=== PATIENT | female | born 1990 | race Caucasian/White ===

== ENCOUNTER → 2017-03-05 | Outpatient (CLI) | payer BC ==
[~2017-03-05] MED LIST: HYDR-5688 PO
--- NOTE | 2017-03-05 10:47 | DIAGNOSTIC IMAGING REPORT ---
ABDOMEN FOR HERNIA HISTORY: 26 years-old Female R19.09 Umbilical mass COMPARISON: None available TECHNIQUE: Multiple real-time sonographic images of the periumbilical soft tissues were obtained assessing grayscale appearance. FINDINGS: Within the supraumbilical soft tissues there is a small hypoechoic abdominal wall defect, 0.7 x 0.6 cm containing a 3.8 x 2.9 x 0.8 cm ill-defined structure which is isoechoic to adjacent subcutaneous fat suggesting a fat filled supraumbilical hernia. No associated loops of bowel are seen communicating with this defect. This does not appear to be reducible. IMPRESSION: Small fat filled supraumbilical hernia without reduction or associated loops of bowel identified. The above report was generated using voice recognition software. It may contain grammatical, syntax or spelling errors. Electronically signed by: Bob Manley M.D. 03/05/2017 10:46 AM Dictated Date/Time: 03/05/2017 10:43 AM
== END | disposition home or self-care (01) ==
LOC: C.ULTR 10:01
PROVIDERS: ATTEND Physician Assistant Medical
DX: R19.09 Other intra-abdominal and pelvic swelling, mass and lump (principal); K43.9 Ventral hernia without obstruction or gangrene

== ENCOUNTER → 2017-04-06 | Day surgery (SDC) | payer BC ==
[2017-04-05 13:06] VITALS: Ht 167.6 cm; Wt 94.1 kg
[~2017-04-06] VITALS: Ht 167.6 cm; Wt 94.1 kg
[~2017-04-06] MED LIST changes: +ATROPINE SULFATE 0.1 MG/ML 5ML SYR IV PRN; +BUPIVACAINE/EPINEPHRINE 0.5% MPF 1:200,000 10 ML VIAL ONE; +CEFAZOLIN 2000 MG/60 ML D5W IV SCH; +DEXAMETHASONE SOD INJ 4 MG/ML VIAL ONE; +EpHEDrine SULFATE INJ 50 MG/ML AMP IV PRN; +FENTANYL CITRATE INJ 50 MCG/1 ML 2 ML VIAL ONE; +HYDROCODONE/ACETAMOPHEN 5/325MG TAB PO PRN; +IBUPROFEN 600 MG TAB PO PRN; +LACTATED RINGER'S 1000ML 1,000 ML IV SCH; +LIDOCAINE HCL 2% 2 ML VIAL (20MG/ML) ONE; +MIDAZOLAM HCL 1 MG/ML 2ML VIAL ONE; +ONDANSETRON INJ 2 MG/ML 2 ML VIAL IV PRN; +ONDANSETRON INJ 2 MG/ML 2 ML VIAL ONE; +PROPOFOL IV EMULSION 10 MG/ML 20 ML VIAL IV ONE; +SODIUM CHLORIDE 0.9% 1000ML 1,000 ML IV SCH
--- NOTE | 2017-04-06 06:56 | History & Physical Bridge Note ---
H&P Re-Evaluation Bridge Note: I have examined the patient, reviewed the History & Physical and in the interval since the performance of the History & Physical I have noted the following changes of clinical significance: No changes noted
--- NOTE | 2017-04-06 07:37 | [facility] Operative Report ---
Operative Report Operative Date Apr 06, 2017. Pre-Operative Diagnosis Epigastric Hernia Post-Operative Diagnosis Same Procedure(s) Performed Open Epigastric Hernia Repair Surgeon Dr. Jeffrey Automatic Steel Tie Adjuster Surgeon(s) None Estimated Blood Loss 5 ml Findings small 1 cm epigastric hernia with fat incarceration Specimens None Anesthesia LMA Complication(s) None Disposition Recovery Room / PACU Description of Procedure After informed consent was obtained the patient was taken the operating suite placed in supine position. After successful placement of the LMA the abdomen was sterilely prepped and draped in usual fashion. A supraumbilical incision was made directly above the umbilicus. We carried us down through the soft tissue using electrocautery. I encountered what I thought was a lipoma. However when I carried this down to its neck there is a small 1 cm epigastric hernia. I amputated the piece of fat because it was too large to to placed back through the hernia. Once I amputated it, it left a discrete fascial defect. I used 0 Ethibond in interrupted terdcs-yp-dahns fashion to close the small defect. I did palpate around the rest of the area and felt no other abnormalities. I thoroughly irrigated the wound and closed it in several layers using 3-0 Vicryl for deep layers and 4-0 Monocryl for the skin. Marcaine was injected around the incision for postoperative analgesia and skin glue used as a dressing. Patient was awakened elevate was removed and she was transferred recovery in stable condition I attest to the content of the Intraoperative Record and any orders documented therein. Any exceptions are noted below.
--- NOTE | 2017-04-06 07:39 | Discharge Instructions-SurgCtr ---
Discharge Instructions Date of Service Apr 06, 2017. Visit Reason for Visit: Epigastric Hernia Discharge Discharge Diagnosis / Problem: epigastric hernia Discharge Goals Goal(s): Decrease discomfort, Improve function Activity Recommendations Activity Limitations: as noted below Lifting Limitations: no more than 10 pounds Exercise/Sports Limitations: until after follow-up appointment May Resume Sexual Activity: after follow-up appointment Shower/Bathe: tomorrow Anesthesia . Post Anesthesia Instructions: If you have had General Anesthesia or IV Sedation: * Do not drive today. * Resume driving when surgeon permits. * Do not make important decisions or sign legal documents today. * Call surgeon for: 1. Temperature elevations greater than 101 degrees F. 2. Uncontrollable pain. 3. Excessive bleeding. 4. Persistent nausea and vomiting. 5. Medication intolerance (nausea, vomiting or rash). * For nausea and vomiting use only clear liquids such as: tea, soda, bouillon until nausea subsides, then gradually increase diet as tolerated. * If you have any concerns or questions, call your surgeon's office. If physician is unavailable and it is an emergency, call 911 or go to the nearest emergency room. . Instructions / Follow-Up Instructions / Follow-Up call [phone] to schedule a f/u appointment if you do not have one. Also please call if any questions or concerns. Diet Recommendations Home Diet: resume previous diet Procedures Procedures Performed: Open Epigastric Hernia Repair Pending Studies Studies pending at discharge: no Medical Emergencies . Who to Call and When: Medical Emergencies: If at any time you feel your situation is an emergency, please call 911 immediately. . Non-Emergent Contact Non-Emergency issues call your: Primary Care Provider, Surgeon Call Non-Emergent contact if: temperature is above 101, wound has increased drainage, wound has increased redness, wound has increased pain . . "Provider Documentation" section prepared by Gilberto Jeffrey. .
[2017-04-06] MEDS: FENTANYL CITRATE INJ 50 MCG/1 ML 2 ML VIAL IV PRN ×3 (07:56→08:11)
[2017-04-06 08:49] VITALS: TEMP 36.8
--- NOTE | 2017-04-06 08:57 | Anesthesia Progress Nt - [facility] ---
Anesthesia Post Op Note Date & Time Apr 06, 2017 at 08:56 Vital Signs Pain Intensity: 2 Vital Signs Past 12 Hours Date Time Temp Pulse Resp B/P (MAP) Pulse Ox O2 Delivery O2 Flow Rate FiO2 04/06/17 08:49 36.8 69 16 122/87 (99) 95 Room Air 04/06/17 08:28 77 14 97 04/06/17 08:28 74 14 04/06/17 08:26 131/96 04/06/17 08:25 36.5 69 16 131/96 96 Room Air 04/06/17 08:23 85 17 96 04/06/17 08:23 80 17 04/06/17 08:21 138/86 04/06/17 08:18 67 10 99 04/06/17 08:18 68 10 04/06/17 08:16 123/93 04/06/17 08:13 73 15 95 04/06/17 08:13 71 15 04/06/17 08:11 120/86 04/06/17 08:08 66 13 99 04/06/17 08:08 65 13 04/06/17 08:05 119/83 04/06/17 08:03 65 11 04/06/17 08:03 64 11 99 04/06/17 08:00 108/81 04/06/17 07:58 69 16 100 04/06/17 07:58 70 16 04/06/17 07:56 120/73 04/06/17 07:53 78 13 99 04/06/17 07:53 73 13 04/06/17 07:51 139/64 04/06/17 07:48 80 10 04/06/17 07:48 81 10 99 04/06/17 07:43 90 15 04/06/17 07:43 90 15 98 04/06/17 07:40 122/84 04/06/17 07:39 227/215 04/06/17 07:38 36.2 98 20 122/84 98 Mask 6 04/06/17 07:38 100 6 04/06/17 07:38 102 6 96 04/06/17 06:26 37 104 16 146/93 (110) 100 Room Air Notes Mental Status: alert / awake / arousable, participated in evaluation Pt Amnestic to Procedure: Yes Nausea / Vomiting: adequately controlled Pain: adequately controlled Airway Patency, RR, SpO2: stable & adequate BP & HR: stable & adequate Hydration State: stable & adequate Anesthetic Complications: no major complications apparent
[2017-04-06 09:06] VITALS: BP 116/80; PULSE 67; O2SAT 96
== END | disposition home or self-care (01) ==
LOC: X.SURG 06:11
PROVIDERS: ATTEND Surgery
DX: K43.9 Ventral hernia without obstruction or gangrene (principal); Z82.49 Family history of ischemic heart disease and other diseases of the circulatory system; Z80.41 Family history of malignant neoplasm of ovary

== ENCOUNTER 2020-12-20 05:33 | Inpatient (IN) ==
--- NOTE | 2020-12-03 14:28 | Anesthesiology Consultation ---
Date of Service December 03, 2020 Assessment & Plan (1) Encounter for pre-operative examination: COVID screening: Per assessment on 12/03: Travel screen negative, no known COVID- 19 positive contacts or current COVID-19 related symptoms. Surgeon arranging preop COVID testing (scheduled 12/16; [place]). Awaiting results. 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 Surgery Operation Date: 12/20/20 07:30 Proposed Procedures p Section in LD - Chanel Dowell MD, FACOG Height/Weight Height: 5 ft 6 in Weight: 106.594 kg Allergies Allergy/AdvReac Type Severity Reaction Status Date / Time Sulfa (Sulfonamide Allergy Unknown RASH AND Verified 12/03/20 13:42 Antibiotics) BLOTCHES Medications Home Medications Medication Instructions Recorded Confirmed Last Taken prenat.vits,yani,lbr-kowj-uvnne 1 tab PO QAM 05/16/20 12/03/20 Unknown magnesium 250 mg tablet 250 mg PO QAM 08/07/20 12/03/20 Unknown acetone (urine) test #50 10/18/20 12/03/20 Unknown blood sugar diagnostic #150 10/18/20 12/03/20 Unknown blood-glucose meter #1 ea 10/18/20 12/03/20 Unknown lancets 33 gauge #150 ea 10/18/20 12/03/20 Unknown insulin syringe-needle U-100 0.5 #50 ea 11/25/20 12/03/20 Unknown mL 31 gauge x 5/16" insulin NPH isoph U-100 human 20 unit SUBCUT HS 12/03/20 12/03/20 Unknown [Novolin N NPH U-100 Insulin] Past Medical History Medical History Anxiety no meds at present Epigastric hernia Gestational diabetes Past Family History Family History Grandmother (Paternal) Ovarian cancer Mother Hypertension Diabetes Uncle Sleep apnea Denies family history of Prostate cancer Myocardial infarction Breast cancer Colorectal cancer Past Surgical History Surgical History History of ankle surgery screws put in ankle 2000 > left S/P section x1 S/P hernia repair open epigastric hernia repair S/P wisdom tooth extraction Social History Smoking Status: Never smoker Do You Dip or Chew Tobacco: No Hx Alcohol Use: No Hx Substance Use: No substance use type: does not use
--- NOTE | 2020-12-19 12:22 | History & Physical Report ---
Date of Service December 19, 2020 Assessment & Plan (1) Insulin controlled gestational diabetes mellitus (GDM) during : (2) Previous delivery affecting : Patient desires repeat c/s and tubal ligation at time. She understands her other options for control and declines. Counseled on failure, ectopic, regret. The risks of surgery were discussed with the patient including anesthesia, bleeding requiring transfusion, infection and poor wound healing, blood clot, damage to surrounding structures requiring further surgery or intervention and injury to the baby. Consent reviewed and signed. Questions answered. History of Present Illness Chief Complaint: presents for scheduled repeat Primary Care Provider: Ashley Ricketts MD Patient is a 30yowf at 39 weeks who presents for scheduled repeat c/s. Her has been complicated by insulin requiring GDM. testing has been reassuring. Growth us at 34 weeks aga. Patient had first c/s in 03/27 for ftp with cervical lip, 7#6oz in [place]. Had a low lying placenta at 20 week scan, that was resolved at 24 weeks. labs--O+/ab-/ri/rprnr/hepb-/hiv-/gbs neg/ panorama low risk, 28 week gtt 158/failed 2 hr gtt/ declined cf/sma Allergies Allergy/AdvReac Type Severity Reaction Status Date / Time Sulfa (Sulfonamide Allergy Unknown RASH AND Verified 12/19/20 11:43 Antibiotics) BLOTCHES Home Medications Medication Instructions Recorded Confirmed Type prenat.vits,yani,nzj-aasb-zhmdm 1 tab PO QAM 05/16/20 12/19/20 History magnesium 250 mg tablet 250 mg PO QAM 08/07/20 12/19/20 History acetone (urine) test #50 ea 10/18/20 12/19/20 Rx blood sugar diagnostic #150 ea 10/18/20 12/19/20 Rx blood-glucose meter #1 ea 10/18/20 12/19/20 Rx lancets 33 gauge #150 ea 10/18/20 12/19/20 Rx insulin syringe-needle U-100 0.5 #50 ea 11/25/20 12/19/20 Rx mL 31 gauge x 5/16" insulin NPH isoph U-100 human 20 unit SUBCUT HS 12/03/20 12/19/20 History [Novolin N NPH U-100 Insulin] Patient History Medical History Anxiety no meds at present Epigastric hernia Gestational diabetes Surgical History History of ankle surgery screws put in ankle 2000 > left S/P section x1 S/P hernia repair open epigastric hernia repair S/P wisdom tooth extraction Family History Grandmother (Paternal) Ovarian cancer Mother Hypertension Diabetes Uncle Sleep apnea Denies family history of Prostate cancer Myocardial infarction Breast cancer Colorectal cancer Social History Smoking Status: Never smoker Second Hand Exposure: No; Hx Alcohol Use: No Hx Substance Use: No Preferred Language: Yemeni Communication Ability: Effective Visual Impairment: No Limitations Hearing Ability: Normal Criminal Court Judge Required: No Beliefs That Will Affect Care: None marital status: Single marital status details: Prem (34) [phone] Current Living Situation: Family and Significant Other Current Living Situation Comment: lives with FOB, 1 dog, 3 cats, fob to change litter. 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 Feels Safe at Home: Yes Dental Care, Regularly: Yes Physical Activity Frequency: 1-2 Times per Week Assistive Devices: Contacts OB History g1 see above DIPPER AND DRIER History non contributory Physical Exam Constitutional: WD/WN, vitals as above Neck: trachea midline, no thyromegaly Respiratory: normal respiratory effort, lungs clear to auscultation Cardiovascular: RRR, no murmur, no edema Gastrointestinal (Abdomen): soft, gravid, nt Psychiatric: A+Ox3, euthymic affect Coding Level of Care Code None Diagnoses Insulin controlled gestational diabetes mellitus (GDM) during O24.414 Previous delivery affecting O34.219
[2020-12-20] MEDS ORDERED: LACTATED RINGER'S 1,000 ML IV SCH ×2 (05:45→06:42)
[2020-12-20] MEDS ORDERED: CITRIC ACID/SODIUM CITRATE 15 ML UDC PO SCH (06:00)
[2020-12-20] MEDS ORDERED: CEFAZOLIN 3000 MG IV SCH (06:00)
[2020-12-20 06:15] LABS: Appearance Urine Cloudy (Clear); Bacteria Urine Automated 1+ (Negative); Bilirubin Urine Negative (Negative); Blood Urine Negative (Negative); Color Urine Yellow; Epithelial Cell Urine Auto >30 /lpf (0-5); Glucose Urine UA Negative (Negative); Ketones Urine Negative (Negative); Leukocyte Esterase Urine 2+ (Negative); Nitrite Urine Negative (Negative); Protein Urine Negative (Negative); RBC Urine Automated 0-4 /hpf (0-4); Specific Gravity Urine 1.013 (1.000-1.030); Urobilinogen Urine Negative (Negative); WBC Urine Automated >30 /hpf (0-5); pH Urine 6.5 (4.5-7.5)
[2020-12-20] MEDS ORDERED: MoRPHine SULFATE PF 1 MG/ML 10 ML AMP/VIAL ONE (06:42)
[2020-12-20] MEDS ORDERED: fentaNYL citrate 100 MCG/2 ML VIAL ONE (06:42)
[2020-12-20] MEDS ORDERED: OXYTOCIN 10 UNITS/ML VIAL ONE (06:42)
[2020-12-20 06:44] LABS: Basophils # (auto) 0.02 K/uL (0-0.2); Basophils % (auto) 0.2 %; Eosinophils # (auto) 0.09 K/uL (0-0.5); Hematocrit (blood only) 36.1 % (37-47); Hemoglobin 11.9 g/dL (12.0-16.0); Immature Granulocytes # (auto) 0.07 K/uL (0.00-0.02); Immature Granulocytes % (auto) 0.8 %; Lymphocytes # (auto) 2.44 K/uL (1.2-3.4); Lymphocytes % (auto) 27.4 %; Mean Corpuscular Hemoglobin 28.8 pg (25-34); Mean Corpuscular Volume 87.4 fL (80-100); Monocytes # (auto) 0.93 K/uL (0.11-0.59); Monocytes % (auto) 10.4 %; Neutrophils # (auto) 5.37 K/uL (1.4-6.5); Neutrophils % (auto) 60.2 %; Platelet Count 199 K/uL (130-400); RDW Coefficient of Variation 13.5 % (11.5-14.5); RDW Standard Deviation 43.2 fL (36.4-46.3); Red Blood Count 4.13 M/uL (4.2-5.4); White Blood Count 8.92 K/uL (4.8-10.8)
[2020-12-20] MEDS ORDERED: NALOXONE HCL 0.08 MG in SYRINGE 1.8 ML IV PRN (07:10)
[2020-12-20] MEDS ORDERED: diphenhydrAMINE 50 MG/ML VIAL IV PRN (07:10)
[2020-12-20] MEDS ORDERED: ONDANSETRON INJ 2 MG/ML 2 ML VIAL IV PRN (07:10)
[2020-12-20] MEDS ORDERED: NALOXONE HCL 0.4 MG/1 ML VIAL/CARP IV PRN (07:10)
[2020-12-20] MEDS ORDERED: MoRPHine SULFATE PF 1 MG/ML 10 ML AMP/VIAL INT SPINAL ONE (07:10)
[2020-12-20] MEDS ORDERED: KETOROLAC 30 MG/ML VIAL IV PRN (07:10)
[2020-12-20] MEDS ORDERED: ePHEDrine sulfate 50 MG/ML AMP IV PRN (07:10)
[2020-12-20] MEDS ORDERED: NALOXONE HCL 1 MG in SODIUM CHLORIDE 0.9% 1000ML 1,000 ML IV PRN (07:10)
[2020-12-20] MEDS ORDERED: LACTATED RINGER'S 500 ML IV PRN (07:10)
[2020-12-20] MEDS ORDERED: MoRPHine SULFATE 2 MG/ML CARP IV PRN (07:10)
--- NOTE | 2020-12-20 07:10 | History & Physical Bridge Note ---
Date of Service December 20, 2020 History & Physical Bridge Note I have examined the patient, reviewed the History & Physical and in the interval since the performance of the History & Physical I have noted the following changes of clinical significance: no changes noted
[2020-12-20] MEDS ORDERED: SODIUM CHLORIDE 0.9% 1000ML 1,000 ML IV SCH (07:15)
[2020-12-20] MEDS ORDERED: DC INTRASPINAL MORPHINE SCH (07:15)
[2020-12-20] MEDS ORDERED: NO NARCOTICS OR SEDATIVES SCH (07:15)
[2020-12-20] MEDS ORDERED: PHENYLEPHRINE 100MCG/ML 5ML SYR ONE (08:01)
[2020-12-20] MEDS ORDERED: ePHEDrine sulfate 50 MG/ML SYR ONE (08:01)
[2020-12-20 08:45] LABS: CO2 Cord Arterial Blood 58 mmHg (39.1-73.5); HCO3 Cord Arterial Blood 26 mmol/L (19.7-28.5); PO2 Cord Arterial Blood 18 mmHg (4.1-31.7); pH Cord Arterial Blood 7.27 (7.1-7.38)
[2020-12-20 08:49] LABS: Oxygen Sat Cord Arterial Blood < 60.0 % (<60)
[2020-12-20 08:51] LABS: Base Excess Cord Venous Blood -1.3 mEq/L (-7.7-1.9); Cord Venous Blood HCO3 24 mmol/L (18.4-26.8); Cord Venous Blood PCO2 40 mmHg (30.4-57.2); Cord Venous Blood PO2 27 mmHg (14.1-43.3); Cord Venous Blood pH 7.38 (7.20-7.44)
[2020-12-20] MEDS ORDERED: ONDANSETRON INJ 2 MG/ML 2 ML VIAL ONE (09:08)
--- NOTE | 2020-12-20 10:00 | Anesthesiology Progress Note ---
Date of Service December 20, 2020 Anesthesia Post Procedure Vital Signs Vital Signs: Temp Pulse Resp BP Pulse Ox 12/20/20 09:58 70 95 12/20/20 09:53 69 97 12/20/20 09:51 71 121/62 12/20/20 09:50 72 18 121/62 97 12/20/20 09:48 70 97 12/20/20 09:43 79 129/81 97 12/20/20 09:40 81 20 129/81 97 12/20/20 09:38 66 97 12/20/20 09:35 62 144/64 H 12/20/20 09:33 66 97 12/20/20 09:30 66 18 144/64 H 97 12/20/20 09:28 63 98 12/20/20 09:25 73 87 L 12/20/20 09:23 65 98 12/20/20 09:21 63 131/73 12/20/20 09:20 36.3 C L 59 L 18 121/65 99 12/20/20 09:18 61 121/65 99 12/20/20 07:16 67 136/90 12/20/20 07:12 36.5 C 67 18 136/90 12/20/20 06:07 81 140/98 12/20/20 05:59 36.8 C 81 18 140/98 12/20/20 05:46 36.8 C 76 18 141/98 H Transfer of Care Handoff Completed per policy Notes Mental Status: alert / awake / arousable and participated in evaluation Patient Amnestic to Procedure: Yes Nausea / Vomiting: adequately controlled Pain: adequately controlled Airway Patency, RR, SpO2: stable & adequate BP & HR: stable & adequate Hydration State: stable & adequate Anesthetic Complications: no major complications apparent and Pt Satisfied with anesthetic care
[2020-12-20] MEDS ORDERED: SENNA 8.6 MG TAB PO PRN (10:59)
[2020-12-20] MEDS ORDERED: BENZOCAINE 20% AER SPR 82.5 GM CAN EXT PRN (10:59)
[2020-12-20] MEDS ORDERED: MAGNESIUM HYDROXIDE SUSP 30 ML UDC PO PRN (10:59)
[2020-12-20] MEDS ORDERED: HYDROCORTISONE ACETATE 25 MG SUPP PR PRN (10:59)
[2020-12-20] MEDS ORDERED: DIPHTHERIA/TETANUS/PERTUSSIS 0.5 ML SYR/VIAL IM ONE (10:59)
[2020-12-20] MEDS ORDERED: SUPERCREAM 0.870% 15 GM JAR EXT PRN (10:59)
[2020-12-20] MEDS ORDERED: ACETAMINOPHEN 1,000 MG/100 ML VIAL IV ONE (11:04)
[2020-12-20] MEDS: OXYTOCIN 20 UNITS in LACTATED RINGER'S 1,000 ML IV SCH ×2 (11:19→19:44)
--- NOTE | 2020-12-20 11:47 | Operative Report (OR) ---
DATE OF OPERATION: 12/20/2020 PREOPERATIVE DIAGNOSES: 1. Intrauterine at 39 and 2/7 weeks. 2. History of previous section, desires repeat. 3. Desires permanent surgical sterilization. POSTOPERATIVE DIAGNOSES: 1. Intrauterine at 39 and 2/7 weeks. 2. History of previous section, desires repeat. 3. Desires permanent surgical sterilization. 4. Intraabdominal adhesions of the uterus to the anterior abdominal wall. PROCEDURES: 1. Repeat lower transverse section. 2. Bilateral modified Moni tubal ligation. 3. Lysis of adhesions. SURGEON: Chanel Dowell MD. LABOR STANDARDS DIRECTOR: Keith Nunes M.D., PGY-1 and Annamaria Wolf MS2. ANESTHESIA: Spinal. ESTIMATED BLOOD LOSS: 800 mL. URINE OUTPUT: 200 mL of clear yellow urine drained from the bladder at the end of the procedure. FLUIDS: 2000 mL. INDICATIONS: The patient is a 30-year-old white female 2, para 1-0-0-1 with history of a previous section in her previous , desires repeat. Also, desires permanent surgical sterilization. FINDINGS: Viable female delivered, Apgars pending, weight pending. Normal uterus, tubes, and ovaries were noted bilaterally. There were some small fibroids noted subserosally on the uterus. There were significant adhesions of the left uterus to the sidewall and anterior abdominal wall as well as lower uterine segment adhesions to the anterior abdominal wall. COMPLICATIONS: None. DRAINS: Patterson. DISPOSITION: To recovery room in stable condition. DESCRIPTION OF PROCEDURE: The patient was taken to the operating room where she was identified verbally and by bracelet. She She was seated on the operating table where a spinal anesthetic was induced without difficulty. She was then placed in the dorsal supine position with a leftward tilt. A Patterson catheter was placed sterilely. She was prepped and draped in normal sterile fashion. Her anesthetic was checked and found to be adequate. Time-out was held, identifying correct patient, procedure, positioning, and equipment. She received an appropriate preoperative antibiotic and there were no concerns. A Pfannenstiel skin incision was made over her previous Pfannenstiel incision with the knife and taken down to the underlying layer of fascia with the knife. Bleeding was attended with Bovie electrocautery. The fascia was incised with the knife and taken out laterally with scissors. The superior edge of the fascial incision was grasped, elevated and the underlying layer of rectus muscle was taken off bluntly and with scissors. In a similar fashion, the inferior edge of the fascial incision was grasped, elevated and the underlying layer of rectus muscle was taken off bluntly and with scissors. The muscles were naturally in the midline. The peritoneum was grasped with snaps x2 and entered sharply with the knife and then the road hogger operator's fingers. The incision was stretched. Unfortunately, there was some significant adhesive disease on the left side of the uterus to the anterior abdominal wall and sidewall as well as the lower uterine segment to the anterior abdominal wall. These were taken down bluntly and sharply with Metzenbaum scissors. There was some bleeding from this area on the left side with taking down these adhesions. The bladder was then taken down sharply. The bladder blade was placed. Thus the hysterotomy incision was made with the knife. It was entered with a snap. The road hogger operator's finger was placed through this. The incision was stretched with the road hogger operator's fingers. The road hogger operator's hand was placed into the uterus and the head was attempted to be delivered. There was a small opening because of the adhesion, so vacuum was called for and then using fundal pressure and vacuum never greater than 50 cm of water, the head was delivered. There was no nuchal cord. The nose and mouth were bulb suctioned. The left arm was then swept across the body and delivered anteriorly and the rest of the baby was delivered with fundal pressure. The baby was vigorous and crying. The cord was clamped and cut. The infant was handed off to the waiting crop ranch hand for drying and attention. Cord blood and gases were obtained. The placenta was manually extracted. The uterus was exteriorized and cleared of all clot and debris with moistened laparotomy sponges. The hysterotomy incision was repaired in 2 layers, the first in a running locked layer of 0 Vicryl, the second in an imbricating and locking layer of 0 Vicryl. Several ktnecu-bs-owrdf sutures were needed for hemostasis at this incision. Pressure was then placed on the incision. Attention was then turned to the tubes for tubal ligation. First on the right, the tube was grasped with a Lawton. An area underneath that was found to be clear, 2-0 plain gut suture was placed through the mesosalpinx. It was tied to one side of the tube and the other creating a knuckle of tube. A second 2-0 plain gut stitch was then placed below this. The tube was then removed using scissors and the edges were cauterized. Hemostasis was noted to be good. Attention was then turned to the left side. This side was much more difficult secondary to disfiguration of the adnexa because of the adhesions on the left side. We were able to visualize the left tube all the way out to the fimbriated end and the ovary also appeared normal. A portion of the tube that was available with a small bit of mesosalpinx that could be created under it was grasped with a Lonny. It was sutured with 2-0 plain gut suture and then another suture was placed underneath this. The tube was then removed using scissors. Unfortunately, the tubal ends fell apart, so the more medial end towards the uterus was grasped with a snap and it was suture ligated with 2-0 Vicryl and then the more lateral edge towards the fimbriated end was grasped with a snap and it was ligated with 2-0 plain gut suture. Another suture was needed because of oozing of the mesosalpinx. Once this was accomplished, hemostasis was noted to be excellent. Attention was then returned to the uterine incision, which was hemostatic. The area of adhesions, where we had done the adhesiolysis on the left side unfortunately was a little bit oozy. I did have to put a stitch of 3-0 Vicryl in a udghxd-wf-vtrsa manner in this area where an obvious squirting arterial vessel was noted. This caused much better hemostasis. However, there was still continued oozing, so Damon was called for and placed in this area and pressure was held for a minute and half. This was done x2 and hemostasis was noted to be much better. A piece of Gelfoam was then placed in this area and over the incision. Both of these things were done after the uterus was reanteriorized. Hemostasis was then noted to be good. The anterior peritoneum was then reapproximated with several interrupted sutures of 0 Vicryl. The fascia was then repaired with 0 Vicryl starting at the corners and meeting in the midline. The subcuticular tissue was copiously irrigated and bleeding was attended to with Bovie electrocautery and the skin was then closed with subcuticular stitch of 4-0 Vicryl. All sponge, lap and needle counts were correct x2. The patient tolerated the procedure well and was taken to recovery room in stable condition. I attest to the content of the Intraoperative Record and any orders documented therein. Any exceptions are noted below. MTDD
[2020-12-20] MEDS: SIMETHICONE 80 MG CHEW PO SCH ×2 (13:27→21:14)
[2020-12-20] MEDS: DOCUSATE SODIUM 100 MG CAP PO SCH (21:14)
[2020-12-21] MEDS ORDERED: diphenhydrAMINE 50 MG/ML VIAL IV PRN (01:10)
[2020-12-21] MEDS ORDERED: KETOROLAC 30 MG/ML VIAL IV PRN (01:10)
[2020-12-21] MEDS ORDERED: diphenhydrAMINE Capsule 25 MG CAP PO PRN (01:10)
[2020-12-21] MEDS ORDERED: PROMETHAZINE HCL 25 MG in SODIUM CHLORIDE 0.9% 50 ML IV PRN (01:10)
[2020-12-21] MEDS ORDERED: ONDANSETRON INJ 2 MG/ML 2 ML VIAL IV PRN (01:10)
[2020-12-21] MEDS: oxyCODONE/ACETAMINOPHEN 5mg/325mg TAB PO PRN ×5 (04:13→21:11)
[2020-12-21] MEDS: IBUPROFEN 600 MG TAB PO PRN ×5 (04:13→21:11)
[2020-12-21 05:55] LABS: Basophils # (auto) 0.01 K/uL (0-0.2); Basophils % (auto) 0.1 %; Eosinophils # (auto) 0.06 K/uL (0-0.5); Eosinophils % (auto) 0.4 %; Hematocrit (blood only) 32.4 % (37-47); Hemoglobin 10.7 g/dL (12.0-16.0); Immature Granulocytes # (auto) 0.04 K/uL (0.00-0.02); Immature Granulocytes % (auto) 0.3 %; Lymphocytes # (auto) 1.67 K/uL (1.2-3.4); Lymphocytes % (auto) 11.1 %; Mean Corpuscular Volume 87.8 fL (80-100); Mean Platelet Volume 11.7 fL (7.4-10.4); Monocytes # (auto) 0.97 K/uL (0.11-0.59); Monocytes % (auto) 6.5 %; Neutrophils # (auto) 12.28 K/uL (1.4-6.5); Neutrophils % (auto) 81.6 %; Platelet Count 187 K/uL (130-400); RDW Coefficient of Variation 13.6 % (11.5-14.5); RDW Standard Deviation 43.3 fL (36.4-46.3); Red Blood Count 3.69 M/uL (4.2-5.4); White Blood Count 15.03 K/uL (4.8-10.8)
--- NOTE | 2020-12-21 06:49 | Obstetrical Progress Note ---
Date of Service <Keith Nunes MD - Last Filed: 12/21/20 06:49> December 21, 2020 Assessment & Plan <Keith Nunes MD - Last Filed: 12/21/20 06:49> (1) Encounter for supervision of normal in multigravida, antepartum: A/P: Beatrice Rodríguez is a 30yo female on POD#1 s/p repeat at 39+2wga. * VSS * Doing well today overall; eating well, voiding well, ambulating well * Pain well-controlled with oxycodone/acetaminophen 1 tab q4h prn and ibuprofen 600mg PO q4h prn * PNL: Rh pos, RI, GBS neg, COVID neg * Routine post- care: OOB, ambulation, diet progression as tolerated * After discharge, will have six-week follow-up with Dr. Dowell Subjective <Keith Nunes MD - Last Filed: 12/21/20 06:49> Beatrice Rodríguez is a 30yo female on POD#1 s/p repeat at 39+2wga. This morning, patient feels well overall. Reports mild, crampy abdominal pain well-managed on analgesics. Tolerating PO intake without nausea or vomiting. Patient has been able to ambulate without lightheadedness or dizziness. Lochia is gradually improving over time. Patterosn catheter has been removed, and patient is voiding without difficulty.Patient is passing flatus; no BM since surgery. Patient is . Review of Systems Denies fever, chills, CP, SOB, cough, breast pain, dysuria, leg pain, leg swelling, headache, and changes in vision. Physical Exam <Keith Nunes MD - Last Filed: 12/21/20 06:49> Gen: awake, alert, oriented, laying in bed Cardiac: regular rhythm, no murmur appreciated Resp: lungs CTABL, good respiratory effort, no increased WOB, no wheezes/rales/rhonchi Abd: normal gravid abdomen, soft, minimally tender, BS present, surgical incision clean, dry, and intact : uterine fundus firm, palpable 2-3 cm below umbilicus LE: no lower extremity edema bilaterally; no deep calf pain, Ruslan's negative bilaterally Results & Data ([facility]) <Keith Nunes MD - Last Filed: 12/21/20 06:49> Vital Signs (Past 12 Hours) Vital Signs Temp Pulse Resp BP Pulse Ox 12/21/20 04:15 37.0 C 85 20 138/87 12/21/20 01:10 20 96 12/21/20 00:08 18 95 12/20/20 23:15 36.7 C 71 18 123/84 93 12/20/20 22:30 16 94 12/20/20 21:25 16 94 12/20/20 20:15 16 95 12/20/20 19:15 36.7 C 69 16 135/94 99 <Courtney Charles MD - Last Filed: 12/21/20 08:22> Co-Signing Physician Notes Resident Physician Supervision Note: I interviewed and examined the patient. Discussed with Dr. Nunes and agree with findings and plan as documented in the note. Any exceptions or clarifications are listed here: POD1 from rCS/BTL, doing well, meeting milestones. VSS, exam wnl. Continue routine care Documented By: Courtney Charles MD Resident Activity Tracking <Keith Nunes MD - Last Filed: 12/21/20 06:49> Resident Involvement: Resident Care Provided Care Provided: OB Delivery
[2020-12-21] MEDS: SIMETHICONE 80 MG CHEW PO SCH ×5 (07:58→21:10)
[2020-12-21] MEDS: DOCUSATE SODIUM 100 MG CAP PO SCH ×2 (08:09→21:11)
[2020-12-21] MEDS: FERROUS SULFATE 325 MG TAB PO SCH (08:09)
[2020-12-21] MEDS: PRENATAL VITAMIN 1 TAB PO SCH (08:09)
[2020-12-21] MEDS ORDERED: bisacodyL 5 MG TABEC PO SCH (20:00)
[2020-12-22] MEDS: oxyCODONE/ACETAMINOPHEN 5mg/325mg TAB PO PRN ×2 (04:06→07:30)
[2020-12-22] MEDS: IBUPROFEN 600 MG TAB PO PRN ×2 (04:07→07:30)
[2020-12-22 06:02] LABS: Hemoglobin 10.3 g/dL (12.0-16.0)
[2020-12-22] MEDS: SIMETHICONE 80 MG CHEW PO SCH (07:29)
[2020-12-22] MEDS: PRENATAL VITAMIN 1 TAB PO SCH (07:29)
[2020-12-22] MEDS: FERROUS SULFATE 325 MG TAB PO SCH (07:29)
[2020-12-22] MEDS: DOCUSATE SODIUM 100 MG CAP PO SCH (07:30)
--- NOTE | 2020-12-22 08:18 | Obstetrical Progress Note ---
Date of Service December 22, 2020 Assessment & Plan (1) delivery delivered: Doing well. Routine care. Plan d/c. INstructions given. Subjective Ambulation: ambulating normally Voiding: no voiding problems Passing Gas:: Yes Diet Tolerance:: regular diet Lochia:: Small Feeding Type:: breast feeding Pain controlled Physical Exam Constitutional WD/WN, vitals as above Respiratory normal respiratory effort, lungs clear to auscultation Cardiovascular RRR, no murmur, no edema Extremities: + edema (tr); no calf tenderness Gastrointestinal (Abdomen) soft, nt, nd, ff/nt at u incision--c/d/i Psychiatric A+Ox3, euthymic affect Results & Data ([facility]) Vital Signs (Past 12 Hours) Vital Signs Temp Pulse Resp BP Pulse Ox 12/21/20 23:10 36.8 C 66 16 130/86 97
[2020-12-22] MEDS ORDERED: bisacodyL 10 MG SUPP PR PRN (09:04)
--- NOTE | 2020-12-23 09:53 | Discharge Summary (DS) ---
ADMISSION DIAGNOSES: 1. Intrauterine at 39+ weeks. 2. History of previous , desires repeat. 3. Desires permanent surgical sterilization. DISCHARGE DIAGNOSES: 1. Intrauterine at 39+ weeks. 2. History of previous , desires repeat. 3. Desires permanent surgical sterilization. PROCEDURES: Repeat lower transverse section with bilateral tubal ligation. HISTORY OF PRESENT ILLNESS: The patient is a 30-year-old white female 2, para 1-0-0-1 at 39 weeks who presents for scheduled repeat section. Her has been complicated by insulin requiring gestational diabetes. testing has been reassuring, growth ultrasound at 34 weeks of AGA. The patient had first in 03/2012 for failure to progress and a cervical lift to deliver a 7 pound 6 ounce baby in [place]. In this , she had a low lying placenta had a 20-week scan that resulted 24 weeks. For the rest of the patient's detailed history and physical, please see her history and physical. ASSESSMENT: This is a 2, para 1-0-0-1 at 39 weeks who presents for repeat section and desires permanent surgical sterilization. HOSPITAL COURSE: The patient was admitted and underwent a repeat lower transverse section and modified bilateral [place] tubal ligation without issue. There were intraabdominal adhesions of the uterus to the anterior abdominal wall and left pelvic sidewall requiring lysis. Estimated blood loss was 800 mL. The patient's postoperative course was uncomplicated. She tolerated a regular diet, ambulated without difficulty, voided after the removal of her [place] catheter and her pain was well controlled on oral pain medications. Her discharge H and H was 10.3 and 32.0. She was discharged home on day 2 with routine followup in the office in 6 weeks in a short 14 pill prescription for Percocet.
== END 2020-12-22 11:00 | disposition home or self-care (01) | DRG 785 ==
LOC: 4S1 05:33 → EDSTATUS 07:30 → 4S2 12:14